=== PATIENT | female | born 1960 | race Caucasian/White ===

== ENCOUNTER 2017-12-26 12:55 | Observation (INO) | payer BC ==
[~2017-12-26] VITALS: Ht 157.5 cm; Wt 67.4 kg
[2017-12-26] MEDS ORDERED: LABETALOL HCL 5 MG/ML 20ML VIAL IV STA (13:13)
[2017-12-26] MEDS ORDERED: ASPIRIN 81 MG CHEW TAB PO ONE ×2 (13:15→15:15)
[2017-12-26 13:26] LABS: BASOPHILS # (AUTO) 0.1 (0.0-0.1); BASOPHILS % 0.4 % (0.0-1.0); EOSINOPHILS # (AUTO) 0.1 (0.0-0.4); EOSINOPHILS % 0.8 % (0.0-6.0); HEMOGLOBIN 14.3 g/dL (12.0-16.0); LYMPHOCYTES # (AUTO) 2.3 (1.0-3.2); LYMPHOCYTES % 19.8 % (18.0-39.1); MEAN CORPUSCULAR HEMOGLOBIN 29.2 pg (28-32); MEAN CORPUSCULAR VOLUME 85.7 fL (81-99); MONOCYTES # (AUTO) 1.3 (0.2-0.8); MONOCYTES % 10.9 % (4.4-11.3); NEUTROPHILS # (AUTO) 7.7 (2.1-6.9); NEUTROPHILS % 67.8 % (38.7-80.0); PLATELET COUNT 395 x10e3/uL (140-360); RED CELL DISTRIBUTION WIDTH 13.2 % (11.7-14.4)
[2017-12-26 13:38] LABS: INR 1.02; PROTHROMBIN TIME 12.6 seconds (11.9-14.5)
[2017-12-26 13:39] LABS: PARTIAL THROMBOPLASTIN TIME 28.8 seconds (23.8-35.5)
[2017-12-26 13:46] LABS: ALANINE AMINOTRANSFERASE 33 IU/L (0-55); ALBUMIN 4.2 g/dL (3.5-5.0); ALBUMIN/GLOBULIN RATIO 1.2 (0.8-2.0); ALKALINE PHOSPHATASE 57 IU/L (40-150); ANION GAP 12.6 mmol/L (8-16); BLOOD UREA NITROGEN 13 mg/dL (7-26); BUN/CREATININE RATIO 15 (6-25); CALCIUM 10.2 mg/dL (8.4-10.2); CARBON DIOXIDE 28 mmol/L (22-29); CHLORIDE 105 mmol/L (98-107); CREATINE KINASE 60 IU/L (29-168); CREATININE, SERUM 0.87 mg/dL (0.57-1.11); EST GLOMERULAR FILTRATION RATE > 60 ML/MIN (60-); GLUCOSE 100 mg/dL (74-118); POTASSIUM 3.6 mmol/L (3.5-5.1); SODIUM 142 mmol/L (136-145)
--- NOTE | 2017-12-26 13:51 | Diagnostic Imaging Report ---
PROCEDURE:CHEST SINGLE (PORTABLE) TECHNIQUE:Portable AP chest INDICATION:Chest pain COMPARISON:None. FINDINGS: Lungs are clear and symmetrically inflated. Azygos lobe. Normal heart size, mediastinal contour, and pulmonary vasculature. Intact skeleton. CONCLUSION: Normal portable chest. Dictated by: Shawn Virgen M.D. on 12/26/2017 at 13:52 Electronically approved by: Shawn Virgen M.D. on 12/26/2017 at 13:52
[2017-12-26] MEDS ORDERED: BONIVA150 MG PO (13:53)
[2017-12-26 14:36] LABS: CLARITY,URINE CLEAR (CLEAR); COLOR,URINE YELLOW (YELLOW); KETONES,URINE NEGATIVE (NEGATIVE); LEUKOCYTE ESTERASE ,URINE NEGATIVE (NEGATIVE); NITRITE,URINE NEGATIVE (NEGATIVE); PROTEIN,URINE DIPSTICK NEGATIVE (NEGATIVE)
[2017-12-26 14:37] LABS: BILIRUBIN,URINE NEGATIVE (NEGATIVE); URINE UROBILINOGEN 0.2 mg/dL (0.2 - 1)
[2017-12-26 14:52] LABS: BACTERIA,URINE RARE /HPF; EPITHELIAL CELLS,URINE FEW /LPF; RBC,URINE 0-5 /HPF (0-5); WBC,URINE (MAN) 0-5 /HPF (0-5)
[2017-12-26] MEDS ORDERED: METOPROLOL TARTRATE 25 MG TAB PO SCH (15:15)
[2017-12-26] MEDS ORDERED: NITROGLYCERIN 0.4 MG SUBL SL PRN (15:15)
[2017-12-26] MEDS ORDERED: SODIUM CHLORIDE FLUSH 10 ML SYR INJ PRN (15:15)
--- OUTSIDE RECORDS SUMMARY | 2017-12-26 15:20 | XMS REPORT ---
Author Author [facility] Address Unknown Phone Unavailable Care Team Providers Care Specialist Icu Name Role Phone CLINT MITCHELL Unavailable Unavailable Problems This patient has no known problems. Allergies, Adverse Reactions, Alerts This patient has no known allergies or adverse reactions. Medications This patient has no known medications. Results Test Description Test Time Test Comments Text Results Atomic Results Result Comments CHEST SINGLE (PORTABLE) [place] [address] Patient Name: JANET LLOYD MR #: [id number] : 1960 Age/Sex: 57/F Req #: [id number] Adm Physician: Ordered by: RUTH CHINCHILLA LABORER [employer] Report #: [id number] Location: ER Room/Bed: Procedure: [id number] DX/CHEST SINGLE (PORTABLE) Exam Date: 12/26/17 Exam Time: 1330 REPORT STATUS: Signed PROCEDURE: CHEST SINGLE (PORTABLE) TECHNIQUE: Portable AP chest INDICATION: Chest pain COMPARISON: None. FINDINGS: Lungs are clear and symmetrically inflated. Azygos lobe. Normal heart size, mediastinal contour, and pulmonary vasculature. Intact skeleton. CONCLUSION: Normal portable chest. Dictated by: Wen Virgen M.D. on 12/26/2017 at 13:52 Electronically approved by: Wen Virgen M.D. on 12/26/2017 at 13:52 Dictated By: WEN VIRGEN MD 135 Transcribed By: MEG on 12/26/17 135 COPY TO: RUTH CHINCHILLA NP
[2017-12-26 17:00] VITALS: BP 179/99
[2017-12-26] MEDS: HYDROCHLOROTHIAZIDE 25 MG TAB PO SCH (17:30)
[2017-12-26] MEDS: FAMOTIDINE 20 MG TAB PO SCH (17:30)
[2017-12-26] MEDS: ENOXAPARIN SOD INJ 40 MG/0.4 ML SYR SC SCH (17:30)
[2017-12-26 18:05] VITALS: BP 179/99
[2017-12-26 20:00] VITALS: BP 184/84
[2017-12-26] MEDS: ACETAMINOPHEN 325 MG TAB PO PRN (20:05)
[2017-12-26] MEDS: LABETALOL HCL 100 MG TAB PO SCH (20:16)
--- NOTE | 2017-12-26 20:25 | History and Physical ---
PRIMARY CARE PHYSICIAN: None. CHIEF COMPLAINT: Substernal chest pain. HISTORY OF PRESENT ILLNESS: This is a 57-year-old woman with a history of osteoporosis, no significant medical history, now developing substernal chest discomfort with radiation described as a tightness, 9 out of 10, with sometimes tight and sometimes sharp without any radiation. Now, pain is about 2 out of 10. The patient does admit to some increased burping and burning sensation rising up the chest from the mid abdomen. No shortness of breath. There is some lightheadedness, but no nausea or vomiting. Last stress test was in 2016, which she states was negative. She is admitted for further evaluation and management. PAST MEDICAL HISTORY: Osteoporosis. PAST SURGICAL HISTORY: Thumb and wrist surgery of the right hand. ALLERGIES: PER ELECTRONIC MEDICAL RECORDS. FAMILY HISTORY/SOCIAL HISTORY: The patient is . She has 4 children. Occasional alcohol. No cigarettes or illicits. MEDICATIONS: Per electronic medical records. REVIEW OF SYSTEMS: Denies any fever or chills or sweats. Denies any nausea, vomiting or diarrhea. PHYSICAL EXAMINATION VITAL SIGNS: On admission, blood pressure 209/95. GENERAL APPEARANCE: A tired-appearing woman resting in the bed. HEENT: Anicteric. Pupils responsive to light. No oral lesions. CARDIOVASCULAR: Normal S1 and S2. LUNGS: Moderate breath sounds, ABDOMEN: Soft and nontender. Nondistended. EXTREMITIES: There is no edema or calf tenderness. NEUROLOGIC: Alert and oriented x3. Moving all extremities. SKIN: Dry. PSYCHIATRIC: Flat affect. MUSCULOSKELETAL: No tenderness in the epigastrium. No tenderness in the chest wall. LABS: Reviewed. MEDICATIONS: Reviewed. ASSESSMENT AND PLAN: This is a 57-year-old woman. 1. Hypertensive emergency with chest discomfort. Control blood pressure. Use beta donnie and calcium channel donnie. Will obtain TSH. 2. Chest pain. Will control blood pressure. Follow up cardiac enzymes. Utilize aspirin. Will also obtain a lipid panel. 3. Osteoporosis. Will hold medications at this time. 4. Overweight state. BMI 27.2. Obtain lipid panel. 5. Prophylaxis: Will use Lovenox and Pepcid. DISPOSITION: Monitor closely. Blood pressure improving. Monitor by telemetry overnight. Will reassess in the morning. Job#: [id number]
[2017-12-26 21:25] LABS: CREATINE KINASE 51 IU/L (29-168)
[2017-12-27] VITALS (10 sets, daily range): BP systolic 113–126; BP diastolic 63–75
[2017-12-27 07:29] LABS: CHOL/HDL RATIO 6.9 (3.0-3.6); CHOLESTEROL 243 MD/DL (0-199); CREATINE KINASE 56 IU/L (29-168); HDL CHOLESTEROL 35 MG/DL (40-60); LDL CHOLESTEROL 160 MG/DL (60-130); TRIGLYCERIDES 242 MG/DL (0-149)
--- NOTE | 2017-12-27 07:43 | Progress Note ---
DATE: December 27, 2017 TIME: 7:19 a.m. OVERNIGHT: Continues to have some substernal chest discomfort. REVIEW OF SYSTEMS: Denies any dizziness. PHYSICAL EXAMINATION VITAL SIGNS: Reviewed. GENERAL: A tired-appearing woman resting in bed. HEENT: Anicteric. CARDIOVASCULAR: Normal S1 and S2. LUNGS: Moderate breath sounds. ABDOMEN: Soft and nontender. EXTREMITIES: No edema. SKIN: Dry. PSYCHIATRIC: Normal affect. LABS: Reviewed. MEDICATIONS: Reviewed. ASSESSMENT: A 57-year-old woman with: 1. Hypertensive emergency with chest pain. 2. Chest pain. 3. Osteoporosis. 4. Overweight state: Body mass index 27.2. PLAN 1. Chest pain persists. Therefore, will get cardiology evaluation. This is substernal chest pain. She does not have a tender chest wall. Cardiac enzymes are overall negative. 2. Blood pressure improving. Titrate medications. 3. Follow up lipid panel. 4. Follow up white blood cell count. 5. Follow up echocardiogram. Job#: [id number] TAMRA
[2017-12-27] MEDS: HYDROCHLOROTHIAZIDE 25 MG TAB PO SCH (09:50)
[2017-12-27] MEDS: ASPIRIN 325 MG TAB PO SCH (09:50)
[2017-12-27] MEDS: FAMOTIDINE 20 MG TAB PO SCH ×2 (09:50→17:43)
[2017-12-27] MEDS: LABETALOL HCL 100 MG TAB PO SCH ×2 (09:50→21:39)
--- NOTE | 2017-12-27 13:22 | Consultation ---
DATE OF CONSULTATION: December 27, 2017 CARDIOLOGY CONSULTATION REASON FOR CONSULTATION: Chest pain. HISTORY: This 57-year-old lady denied having any health problem. She does not see any physician. "I have osteoporosis." She is not aware to have high blood pressure. For the last 4 or 5 days, she is having a problem with chest pain, lower retrosternal, worse with swallowing solid food. She feels things stuck in there. She came to the emergency room. She had this chest pain, and she was extremely hypertensive. Admitted for further management. Serial cardiac enzymes are all normal. Her medications were adjusted and her blood pressure controlled. However, she continued to have severe chest pain as described. Her lipid profile was quite abnormal with cholesterol of 243, HDL of 35, and LDL of 160. Her cardiac enzymes were normal. Cardiac consultation is obtained. I visited with the patient, and she complained about the chest pain. She denied having any exertional component. There is shortness of breath on exertion. There is no orthopnea, no paroxysmal nocturnal dyspnea. There are no palpitations. No syncope or presyncope. REVIEW OF SYSTEMS: Extensive to all systems. Only pertinent positive and negative ones will be mentioned. GENERAL: No fever. No chills. CARDIAC: As per acute illness. PULMONARY: No recent travel. No cough. No hemoptysis. No pleuritic chest pain. GI: As per above. Mainly dysphagia it seems to be and fullness with food. She does have diarrhea at times but no nausea and no vomiting. No abdominal pain except for what is described. : No hematuria. No dysuria. MUSCULAR: No aches. No pain. NEUROLOGIC: Episodes of headache, but no seizure activity. No localized weakness or deficits. SOCIAL HISTORY: She is . She is a nonsmoker and not an alcohol drinker. PAST MEDICAL HISTORY: Osteoporosis. Right thumb and wrist surgery. FAMILY HISTORY: Father is alive at age 85. He had bypass surgery in his 60s. Her mother at age 62 with complication of congestive heart failure and myocardial infarction. Four siblings, 2 brothers and 2 sisters. Two of her sisters with hypertension, 1 with CVA and carotid stent. CURRENT MEDICATIONS 1. Hydrochlorothiazide 25 mg a day. 2. Aspirin 325 mg a day. 3. Labetalol 100 mg twice a day. 4. Lovenox 40 mg daily. ALLERGIES: NONE. PHYSICAL EXAMINATION VITALS: Height of 5 feet 2 inches. Weight of 148 pounds. Blood pressure 130/70. Heart rate of 70. Respiratory rate of 18. Afebrile. HEENT: Pupils are equal and reactive. NECK: No elevation of jugular venous pulsation. No bruit. CHEST: Clear to auscultation and percussion. HEART: PMI at 5th left intercostal space, normal 1st and 2nd heart sounds. ABDOMEN: Soft with good bowel sounds. No organomegaly. No abdominal bruits. EXTREMITIES: No cyanosis. No clubbing. No edema. No signs of deep venous thrombosis. No delay between pulses. Good distal pulses. NEUROLOGIC: Neck is supple. No motor or sensory deficits. LAB DATA: Sodium of 142, potassium 3.6, BUN of 13, creatinine 0.9. White blood cell count is 11.4, hemoglobin 14.3, hematocrit 42%, platelet count of 395,000. CKs are normal. Triglycerides of 242, total cholesterol 243, HDL of only 35, LDL of 160. TSH of 3.2. EKG showing sinus bradycardia. BNP is normal. IMAGING: Chest x-ray showing no major abnormality. IMPRESSION AND PLAN 1. Chest pain, atypical by description. 2. Severe hypertension. 3. Very abnormal lipid profile with low-density lipoprotein of 160, high-density lipoprotein of 35. 4. Strong family history of coronary artery disease. Cardiac-lala, my recommendation is to proceed with a cardiac stress test. Depending on the results of the stress test, further steps to be done. Differential diagnosis was discussed and explained. Job#: [id number]
--- NOTE | 2017-12-27 14:04 | Cardiology Report ---
DATE OF STUDY: December 27, 2017 CARDIAC STRESS TEST TECHNICAL DETAILS: The protocol is modified Brinda. Target heart rate at 85% at 137 per minute. RESULTS 1. Patient exercised for 6 minutes 22 seconds. 2. Heart rate increased from 68 per minute to 122 per minute. 3. Blood pressure increased from 140/80 to 184/99. 4. No chest pain. Test stopped because of leg fatigue. 5. No EKG changes. IMPRESSION: Negative submaximum cardiac stress test. Patient had labetalol this morning. Limitations of this negative cardiac stress test are discussed and explained. The patient verbalized an understanding. For the time being, will treat her medically with the understanding if there are more symptoms she needs to have more testing. Job#: [id number]
[2017-12-27] MEDS: ENOXAPARIN SOD INJ 40 MG/0.4 ML SYR SC SCH (17:43)
[2017-12-27] MEDS ORDERED: CRESTOR 10MG PO SCH (21:00)
[2017-12-28] VITALS: BP 114/52
[2017-12-28 04:10] VITALS: BP 124/68
[2017-12-28] MEDS ORDERED: FAMOTIDINE20 MG PO (07:33)
[2017-12-28] MEDS ORDERED: ASPIRIN325 MG PO (07:33)
[2017-12-28] MEDS ORDERED: LABETALOL HCL100 MG PO (07:33)
[2017-12-28] MEDS ORDERED: ESIDRIX25 MG PO (07:33)
[2017-12-28] MEDS ORDERED: PRAVASTATIN SOD40 MG PO (07:33)
[2017-12-28 07:43] VITALS: BP 106/65
[2017-12-28 07:44] VITALS: BP 106/65
[2017-12-28 08:46] LABS: BASOPHILS % 0.5 % (0.0-1.0); EOSINOPHILS # (AUTO) 0.1 (0.0-0.4); EOSINOPHILS % 1.6 % (0.0-6.0); HEMATOCRIT 39.9 % (34.2-44.1); HEMOGLOBIN 13.4 g/dL (12.0-16.0); LYMPHOCYTES % 25.4 % (18.0-39.1); MEAN CORPUSCULAR HEMOGLOBIN 29.3 pg (28-32); MEAN CORPUSCULAR HGB CONC 33.6 g/dL (31-35); MEAN CORPUSCULAR VOLUME 87.1 fL (81-99); MONOCYTES # (AUTO) 1.1 (0.2-0.8); MONOCYTES % 13.4 % (4.4-11.3); NEUTROPHILS # (AUTO) 4.7 (2.1-6.9); NEUTROPHILS % 58.7 % (38.7-80.0); PLATELET COUNT 369 x10e3/uL (140-360); RED BLOOD COUNT 4.58 x10e6/uL (3.6-5.1)
[2017-12-28] MEDS: LABETALOL HCL 100 MG TAB PO SCH (09:00)
[2017-12-28 09:04] LABS: ANION GAP 12.9 mmol/L (8-16); BLOOD UREA NITROGEN 14 mg/dL (7-26); BUN/CREATININE RATIO 16 (6-25); CARBON DIOXIDE 28 mmol/L (22-29); CHLORIDE 104 mmol/L (98-107); CREATININE, SERUM 0.88 mg/dL (0.57-1.11); EST GLOMERULAR FILTRATION RATE > 60 ML/MIN (60-); GLUCOSE 112 mg/dL (74-118); POTASSIUM 3.9 mmol/L (3.5-5.1); SODIUM 141 mmol/L (136-145)
[2017-12-28] MEDS: HYDROCHLOROTHIAZIDE 25 MG TAB PO SCH (09:22)
[2017-12-28] MEDS: ASPIRIN 325 MG TAB PO SCH (09:22)
[2017-12-28] MEDS: FAMOTIDINE 20 MG TAB PO SCH (09:22)
[2017-12-28] MEDS: ACETAMINOPHEN 325 MG TAB PO PRN (09:28)
[2017-12-28 11:43] VITALS: BP 145/97
== END 2017-12-28 12:20 | disposition home or self-care (01) ==
LOC: ER 12:55 → ERHOLD 15:17 → MED/SURG3 16:33
PROVIDERS: ADMIT Internal Medicine; ATTEND Internal Medicine
DX: R07.89 Other chest pain (principal); I16.1 Hypertensive emergency; I10 Essential (primary) hypertension; M81.0 Age-related osteoporosis without current pathological fracture; E66.3 Overweight; Z68.27 Body mass index [BMI] 27.0-27.9, adult; Z82.49 Family history of ischemic heart disease and other diseases of the circulatory system; E78.5 Hyperlipidemia, unspecified; K21.9 Gastro-esophageal reflux disease without esophagitis
CPT/HCPCS: 36415 ×3; 71045; 80048; 80053; 80061; 81001; 82550 ×2; 82553 ×2; 83880; 84443; 84484 ×2; 85025 ×2; 85610; 85730; 93005; 93017; 93306; 99284; G0378 ×3; J1650 ×2; J3490

== ENCOUNTER 2025-05-06 05:44 | Emergency (ER) | payer BC, MEDICARE ==
[~2025-05-06] VITALS: Ht 157.5 cm; Wt 59.9 kg
[~2025-05-06 05:44] MED LIST: ASPIRIN325 MG PO; BONIVA150 MG PO; ESIDRIX25 MG PO; FAMOTIDINE20 MG PO; LABETALOL HCL100 MG PO; PRAVASTATIN SOD40 MG PO
[2025-05-06 05:45] VITALS: TEMP 98.9
[2025-05-06] MEDS: SODIUM CHLORIDE 0.9% 1000ML 1,000 ML IV ONE (06:21)
[2025-05-06 06:33] LABS: BASOPHILS % 0.4 % (0.0-1.0); EOSINOPHILS % 0.4 % (0.0-6.0); LYMPHOCYTES % 16.5 % (18.0-39.1); MONOCYTES % 7.2 % (4.4-11.3); NEUTROPHILS % 75.1 % (38.7-80.0); RED CELL DISTRIBUTION WIDTH 12.8 % (11.7-14.4)
[2025-05-06 07:03] LABS: LEUKOCYTE ESTERASE ,URINE NEGATIVE (NEGATIVE); PROTEIN,URINE DIPSTICK NEGATIVE (NEGATIVE)
[2025-05-06 07:04] LABS: URINE UROBILINOGEN 0.2 mg/dL (0.2 - 1)
[2025-05-06 07:07] LABS: EST GLOMERULAR FILTRATION RATE 77.0 ML/MIN (>=60)
[2025-05-06] MEDS ORDERED: IOPAMIDOL 370 MG/ML 100 ML INFUS..BTL INJ ONE (07:14)
[2025-05-06 07:53] LABS: EPITHELIAL CELLS,URINE FEW /LPF; WBC,URINE (MAN) 0-5 /HPF (0-5)
[2025-05-06 09:00] VITALS: PULSE 64; RESP 17; O2SAT 100
[2025-05-06] MEDS: MECLIZINE HCL 12.5 MG TAB PO ONE (09:00)
[2025-05-06] MEDS ORDERED: MECLIZINE HCL25 MG PO (09:49)
[2025-05-06] MEDS ORDERED: ONDANSETRON ODT4 MG PO (09:49)
== END 2025-05-06 10:05 | disposition home or self-care (01) ==
LOC: ER 06:12
DX: K59.00 Constipation, unspecified (principal); R42 Dizziness and giddiness; I10 Essential (primary) hypertension; E78.5 Hyperlipidemia, unspecified; E03.9 Hypothyroidism, unspecified; K21.9 Gastro-esophageal reflux disease without esophagitis; Z98.0 Intestinal bypass and anastomosis status
CPT/HCPCS: 36415; 70450; 74177; 80053; 81001; 83690; 85025; 99284; J7030; J8597; Q9967